=== PATIENT | male | born 1980 | race Caucasian/White ===

== ENCOUNTER 2017-04-11 16:56 | Emergency (ER) | payer MEDICAID, OTHER ==
[~2017-04-11] VITALS: Ht 190.5 cm; Wt 100.0 kg
[~2017-04-11 16:56] MED LIST: LISI10TA3 PO; MEDR4PAK PO; NORC5TAB PO; ORPH100T99 PO
[2017-04-11 17:00] VITALS: BP 166/111; PULSE 89; RESP 18; TEMP 98.4; O2SAT 97
--- NOTE | 2017-04-11 17:29 | PD ---
HPI Chief Complaint: Musculoskeletal Complaint Time Seen by Provider: 17:00 Travel History International Travel<30 days: No Contact w/Intl Traveler<30days: No Traveled to known affect area: No History of Present Illness HPI 36-year-old male presents to the emergency room for evaluation of right hip pain for the past 6 weeks. Patient states pain started gradually and has been worsening over time. He went to his chiropractor who took x-rays and told him he had arthritis and that there is "something wrong with the ball." He has been doing range of motion exercises and therapy with a chiropractor but states his symptoms seem to be worsening. Pain is localized to the right anterior groin with radiation into the thigh. He also has pain on the trochanteric bursa and the buttocks. Pain is worsened with any range of motion and ambulation. Nothing seems to improve symptoms. Denies paresthesias. Patient has been taking 200-400 mg ibuprofen daily without significant relief in symptoms. Denies steroid use. Reports occasional alcohol use. 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 PFSH Past Medical History Cardiovascular Problems: Yes (htn on meds but states out of medication) Hypertension: Yes Musculoskeletal: Yes (SCIATICA) Immunizations Current: Yes Past Surgical History Appendectomy: Yes Social History Alcohol Use: Yes (OCCAS) Tobacco Use: No (FORMER) Substance Use: No Allergies-Medications (Allergen,Severity, Reaction): Coded Allergies: Bees (Verified Allergy, Severe, swelling, 04/11/17) Reported Meds & Prescriptions Reported Meds & Active Scripts Active Lisinopril 10 Mg Tab 10 Mg PO DAILY Review of Systems Except as stated in HPI: all other systems reviewed are Neg Physical Exam Narrative GENERAL: Well-nourished, well-developed male in no acute distress. Afebrile. Ambulatory. SKIN: Focused skin assessment warm/dry. HEAD: Normocephalic. EYES: No scleral icterus. No injection or drainage. NECK: Supple, trachea midline. No JVD or lymphadenopathy. CARDIOVASCULAR: Regular rate and rhythm without murmurs, gallops, or rubs. RESPIRATORY: Breath sounds equal bilaterally. No accessory muscle use. MUSCULOSKELETAL: No cyanosis. Full range of motion of the right lower extremity. 2+ dorsalis pedis pulse. No significant tenderness to palpation of the hip. No edema. Data Data Last Documented VS Vital Signs Date Time Temp Pulse Resp B/P Pulse Ox O2 Delivery O2 Flow Rate FiO2 04/11/17 17:00 98.4 89 18 166/111 97 Orders Hip, Uni(Ap&Lat) W Ap Pelvis (04/11/17 ) MDM Medical Decision Making Medical Screen Exam Complete: Yes Emergency Medical Condition: Yes Medical Record Reviewed: Yes Differential Diagnosis Avascular necrosis, muscle spasm, strain, sprain, bursitis Narrative Course 36-year-old male presents to the emergency room for evaluation of right anterior hip pain for the past 6 weeks. No trauma or injury. Patient does repetitive unloading/loading boxes at work. He has been ambulatory since onset of symptoms. Physical exam reveals regular extremity is neurovascularly intact with 2+ dorsalis pedis pulse. Full range of motion but with pain localized to the right anterior groin. X-ray was taken to evaluate for avascular necrosis. X-ray shows no acute abnormality. This is likely groin sprain or bursitis. Patient will be discharged with prescription for ibuprofen and Robaxin. Told to follow up with her primary care physician or return for worsening symptoms. He understands and agrees to plan. Diagnosis Primary Impression: Bursitis Qualified Code: M70.71 - Iliopsoas bursitis of right hip Referrals: [facility] Primary Care Physician Patient Instructions: General Instructions, Hip Bursitis (ED) Additional Instructions: Rest and drink plenty of fluids. Take Robaxin as directed, as needed for pain. Take ibuprofen with food as directed, as needed for pain. Apply ice to the affected area for 20 minutes at a time, as needed for pain and swelling. Follow-up with a primary care physician. Return to the emergency room for worsening symptoms. Med/Other Pt SpecificInfo: Prescription(s) given Disposition: 01 DISCHARGE HOME Condition: Stable Dixie Aguilera Apr 11, 2017 17:29
--- NOTE | 2017-04-11 17:44 | RADRPT ---
EXAM DATE/TIME: 04/11/2017 17:21 [place] COMPARISON: No previous studies available for comparison. INDICATIONS : Right anterior and lateral hip pain. MEDICAL HISTORY : None. SURGICAL HISTORY : None. ENCOUNTER: Initial ACUITY: 2 months PAIN SCORE: 9/10 LOCATION: Right hip FINDINGS: Examination of the right hip was performed with AP Pelvis. The primary and secondary trabecular harini abdulaziz of the femoral neck is intact. The hip joint is of normal width without significant sclerosis or bony hypertrophy. The acetabulum is grossly intact. CONCLUSION: No acute fracture. Rico Reddy MD on April 11, 2017 at 17:43 Board Certified Radiologist. This report was verified electronically.
[2017-04-11] MEDS ORDERED: ROBA750T PO (17:50)
[2017-04-11] MEDS ORDERED: IBUP-232 PO (17:50)
== END 2017-04-11 17:57 | disposition home or self-care (01) ==
LOC: PHEFT 16:56
DX: M70.71 Other bursitis of hip, right hip (principal); I10 Essential (primary) hypertension
CPT/HCPCS: 73502; 99283

== ENCOUNTER 2017-05-01 10:22 | Emergency (ER) | payer MEDICAID ==
[~2017-05-01] VITALS: Ht 190.5 cm; Wt 101.4 kg
[~2017-05-01 10:22] MED LIST changes: +IBUP-232 PO; -MEDR4PAK PO; -NORC5TAB PO; -ORPH100T99 PO; +ROBA750T PO
--- NOTE | 2017-05-01 10:41 | PD ---
HPI Chief Complaint: ENT Complaint Time Seen by Provider: 10:35 Travel History International Travel<30 days: No Contact w/Intl Traveler<30days: No History of Present Illness HPI This is a 36-year-old male who presents to the emergency department with sore throat for 1 day, constant, moderate severity associated with some sweating, chills and productive cough with green sputum. He denies any vomiting or diarrhea. He doesn't know of any sick contacts. He is supposed to be on blood pressure medication but he is not on it currently. He is not sure what the medication was. PFSH Past Medical History Cardiovascular Problems: Yes (htn on meds but states out of medication) Hypertension: Yes Musculoskeletal: Yes (SCIATICA) Immunizations Current: Yes Past Surgical History Appendectomy: Yes Social History Alcohol Use: Yes (OCCAS) Tobacco Use: No (FORMER) Substance Use: No Allergies-Medications (Allergen,Severity, Reaction): Coded Allergies: Bees (Verified Allergy, Severe, swelling, 05/01/17) Reported Meds & Prescriptions Reported Meds & Active Scripts Active Lisinopril 10 Mg Tab 10 Mg PO DAILY Review of Systems Except as stated in HPI: all other systems reviewed are Neg Physical Exam Narrative GENERAL: Diaphoretic otherwise well-appearing SKIN: Focused skin assessment warm and dry. HEAD: Atraumatic. Normocephalic. EYES: Pupils equal and round. No injection or drainage. ENT: Moist mucous membranes. Posterior pharyngeal erythema and edema with no asymmetry or exudates, NECK: No cervical lymphadenopathy CARDIOVASCULAR: Regular rate and rhythm. No murmur appreciated. RESPIRATORY: Clear to auscultation. Breath sounds equal bilaterally. GASTROINTESTINAL: Abdomen soft, non-tender, nondistended. MUSCULOSKELETAL: No obvious deformities. NEUROLOGICAL: Awake and alert. No obvious cranial nerve deficits. Moving all extremities. PSYCHIATRIC: Appropriate mood and affect; insight and judgment normal. Data Data Last Documented VS Vital Signs Date Time Temp Pulse Resp B/P Pulse Ox O2 Delivery O2 Flow Rate FiO2 05/01/17 10:45 112 18 180/104 95 Room Air 05/01/17 10:42 99.1 Orders Ketorolac Inj (Toradol Inj) (05/01/17 10:45) Acetaminophen (Tylenol) (05/01/17 10:45) Group A Rapid Strep Screen (05/01/17 10:55) Influenzae A/B Antigen (05/01/17 10:55) Strep Culture (Group A) (05/01/17 11:00) MDM Medical Decision Making Medical Screen Exam Complete: Yes Emergency Medical Condition: Yes Interpretation(s) Temperature is 99.1, tachycardic, hypertensive Rapid strep negative Influenza negative Differential Diagnosis Strep pharyngitis, viral pharyngitis, mononucleosis, sepsis, viral syndrome, influenza Narrative Course This is a 36-year-old male who presents with a sore throat, chills and fatigue. He was tachycardic on arrival, appeared sweaty and had a temperature 99.1. He was given acetaminophen and Toradol and his vital signs improved significantly. Patient was quite hypertensive but has a history of poorly controlled chronic hypertension. He is asymptomatic with no chest pain or headache. He'll be started on hydrochlorothiazide. He was again given resources for his area clinic and urged to follow-up with a primary care physician. I suspect he has a viral syndrome and I think he's safe for outpatient evaluation. Patient will be discharged. Diagnosis Primary Impression: Viral syndrome Additional Impression: Chronic hypertension Patient Instructions: General Instructions Additional Instructions: If you develop severe chest pain, shortness of breath, sweating, lightheadedness , dizziness or difficulty breathing return to the emergency department immediately. Follow-up with a primary care physician without fail as your high blood pressure needs to be addressed. Med/Other Pt SpecificInfo: Prescription(s) given Scripts Phenol (Antiseptic) (Chloraseptic)1.4 % Spr1 [place] PO Q2HR PRN (SORE THROAT) #1 BOTTLE Prov:Perlita Mo MD 05/01/17 Naproxen 500 Mg [id number] Mg PO BID PRN (PAIN SCALE 4 TO 10) #10 TAB Ref 0 Prov:Perlita Mo MD 05/01/17 Lisinopril 10 Mg Tab10 Mg PO DAILY #60 TAB Ref 0 Prov:Perlita Mo MD 05/01/17 Disposition: 01 DISCHARGE HOME Condition: Stable Perlita Mo MD May 01, 2017 10:41
[2017-05-01 10:42] VITALS: BP 184/109; PULSE 122; RESP 16; TEMP 99.1; O2SAT 95
[2017-05-01 10:45] VITALS: BP 180/104; PULSE 112; RESP 18; O2SAT 95
[2017-05-01] MEDS ORDERED: KETOROLAC TROMETHAMINE 60 MG/2 ML (IM) VIAL IM ONE (10:45)
[2017-05-01] MEDS ORDERED: ACETAMINOPHEN 500 MG CPLT PO ONE (10:45)
[2017-05-01] MEDS ORDERED: LISI10TA3 PO (11:42)
[2017-05-01] MEDS ORDERED: NAPR500T PO (11:42)
[2017-05-01] MEDS ORDERED: CHLO1.4S2 PO (11:43)
[2017-05-01 11:44] VITALS: BP 179/108; PULSE 101; RESP 18; O2SAT 97
== END 2017-05-01 11:52 | disposition home or self-care (01) ==
LOC: PHED 10:22
DX: B34.9 Viral infection, unspecified (principal); I10 Essential (primary) hypertension; Z87.891 Personal history of nicotine dependence
CPT/HCPCS: 87081; 87804; 87880; 96372; 99284; J1885

== ENCOUNTER 2018-02-09 09:06 | Emergency (ER) | payer MEDICAID, OTHER ==
[~2018-02-09] VITALS: Ht 190.5 cm; Wt 100.0 kg
[~2018-02-09 09:06] MED LIST changes: +CHLO1.4S2 PO; -IBUP-232 PO; +NAPR500T2 PO; -ROBA750T PO
[2018-02-09 09:12] VITALS: BP 180/93; PULSE 111; RESP 16; TEMP 99.6; O2SAT 96
[2018-02-09] MEDS ORDERED: VENTAER INH (10:34)
[2018-02-09] MEDS ORDERED: MEDR4PAK PO (10:34)
[2018-02-09] MEDS ORDERED: AUGM875T3 PO (10:34)
--- NOTE | 2018-02-09 10:38 | PD ---
HPI Chief Complaint: Cold / Flu Symptoms Time Seen by Provider: 10:26 Travel History International Travel<30 days: No Contact w/Intl Traveler<30days: No Traveled to known affect area: No History of Present Illness HPI 37y male presents to the ED c/o cough, congestion, right sinus pain with associated ear fullness, for 1 week. Says that he developed what he described as bronchitis but he developed sinus pain and decided to come in to the ED today. Says his sinus tenderness is located around the right eye. No radiation of pain, pain is mild in severity. Says he had some blood streaked sputum for the last 2 days from coughing. Otherwise, has had productive cough with clear sputum. Says he tried Sudafed and TheraFlu [id number] without improvement. He denies fevers, chills, chest pain, shortness of breath, abdominal pain. Says he did have one episode of nausea however this has since resolved. Denies vomiting or diarrhea. Patient does not have a primary care physician. He denies sick contacts. PFSH Past Medical History Cardiovascular Problems: Yes (htn on meds ) Diminished Hearing: No Hypertension: Yes Musculoskeletal: Yes (SCIATICA) Immunizations Current: Yes Tetanus Vaccination: > 5 Years Influenza Vaccination: No Past Surgical History Appendectomy: Yes Social History Alcohol Use: Yes (occas beer) Tobacco Use: No (FORMER- quit 7 salvador ago cigs) Substance Use: No Allergies-Medications (Allergen,Severity, Reaction): Coded Allergies: bee venom protein (honey bee) (Unverified Allergy, Severe, swelling, ) Reported Meds & Prescriptions Reported Meds & Active Scripts Active Augmentin (Amoxicillin-Clavulanate) 875-125 Mg Tab 1 Tab PO BID 10 Days Medrol Dosepak (Methylprednisolone) 4 Mg Dspk 4 Mg PO DIRECTED Per Pharmacist direction Ventolin Hfa 18 GM Inh (Albuterol Sulfate) 90 Mcg/Act Aer 2 Puff INH Q4-6H PRN Chloraseptic (Phenol (Antiseptic)) 1.4 % Spr 1 [place] PO Q2HR PRN Naproxen 500 Mg Tab 500 Mg PO BID PRN Lisinopril 10 Mg Tab 10 Mg PO DAILY Review of Systems Except as stated in HPI: all other systems reviewed are Neg Physical Exam Narrative GENERAL: Well-nourished, well-developed patient, in NAD SKIN: Focused skin assessment warm/dry. No rashes or lesions. HEAD: Normocephalic. Atraumatic. EYES: No scleral icterus. No injection or drainage. TTP to right frontal and maxillary sinus, right tympanic membrane mildly bulging with clear serous fluid without erythema or perforation. No lymphadenopathy THROAT: No pharyngeal injection, exudates, or tonsillar hypertrophy. Airway is patent. NECK: Supple, trachea midline. No JVD or lymphadenopathy. No meningismus. CARDIOVASCULAR: Regular rate and rhythm without murmurs, gallops, or rubs. RESPIRATORY: Breath sounds equal bilaterally. No accessory muscle use. No wheezes, rales, or rhonchi MUSCULOSKELETAL: No cyanosis, or edema. BACK: Nontender without obvious deformity. No CVA tenderness. Data Data Last Documented VS Vital Signs Date Time Temp Pulse Resp B/P (MAP) Pulse Ox O2 Delivery O2 Flow Rate FiO2 02/09/18 10:24 100 16 97 Room Air 02/09/18 09:12 99.6 180/93 (122) Orders Orders Ed Discharge Order (02/09/18 10:38) [facility] Medical Decision Making Medical Screen Exam Complete: Yes Emergency Medical Condition: Yes Differential Diagnosis influenza, URI, pneumonia, bronchitis, pneumonitis, bronchospasm, acute sinusitis Narrative Course 37y male presents to the ED c/o cough, congestion, right sinus pain with associated ear fullness, for 1 week. Says that he developed what he described as bronchitis but he developed sinus pain and decided to come in to the ED today. Says his sinus tenderness is located around the right eye. No radiation of pain, pain is mild in severity. Says he had some blood streaked sputum for the last 2 days from coughing. Otherwise, has had productive cough with clear sputum. Says he tried Sudafed and TheraFlu [id number] without improvement. He denies fevers, chills, chest pain, shortness of breath, abdominal pain. Says he did have one episode of nausea however this has since resolved. Denies vomiting or diarrhea. Patient does not have a primary care physician. He denies sick contacts. Vital signs are stable. Physical exam findings consistent with acute sinusitis on the right and bronchitis. He will be discharged with Medrol Dosepak, albuterol inhaler, Augmentin. Patient says the albuterol inhaler has helped him previously with bronchitis. Patient advised to follow-up with a primary care physician. Consider [facility]. Return for worsening or persistent symptoms. Diagnosis Primary Impression: Sinusitis Qualified Codes: J01.10 - Acute frontal sinusitis, unspecified Additional Impression: Bronchitis Referrals: [facility] Departure Forms: Tests/Procedures, Work Release Enter return to work date: February 12, 2018 Additional Instructions: You may use a drop of honey and lemon in a cup of warm water to soothe your cough. (If you are greater than 1 year old ) Ensure good hydration and a nutritious diet. Note that viral infection symptoms may last for several weeks if you have a viral illness. Follow up with your primary physician within 2-3 days. Return to the ED for worsening or persistent symptoms. Scripts Amoxicillin-Clavulanate (Augmentin) 875-125 Mg Tab 1 TAB PO BID for Infection for 10 Days, #20 TAB 0 Refills Prov: Mark Amaya MD 02/09/18 Methylprednisolone Dosepak (Medrol Dosepak) 4 Mg Dspk 4 MG PO DIRECTED, #1 DSPK 0 Refills Per Pharmacist direction Prov: Mark Amaya MD 02/09/18 Albuterol 18 GM Inh (Ventolin Hfa 18 GM Inh) 90 Mcg/Act Aer 2 PUFF INH Q4-6H Y for SHORTNESS OF BREATH, #1 INHALER 0 Refills Prov: Mark Amaya MD 02/09/18 Disposition: 01 DISCHARGE HOME Condition: Stable Zaynab Wesley February 09, 2018 10:38
== END 2018-02-09 10:55 | disposition home or self-care (01) ==
LOC: PHED 09:06 → PHEFT 10:55
DX: J01.10 Acute frontal sinusitis, unspecified (principal); I10 Essential (primary) hypertension
CPT/HCPCS: 99283